=== PATIENT | male | born 1970 | race Hispanic/Latino ===

== ENCOUNTER 2017-11-29 17:36 | Inpatient (IN) | payer MEDICAID ==
--- NOTE | 2017-11-29 18:46 | C.PDOC ---
History Of Present Illness 47 year old male presents to the ED requesting alcohol detox. Patient also reports nausea and states his last drink was at 1200 today. Patient has no other complaints at this time. Time Seen by Provider: 11/29/17 18:32 Chief Complaint (Nursing): Substance Abuse History Per: Patient History/Exam Limitations: no limitations Onset/Duration Of Symptoms: Hrs Current Symptoms Are (Timing): Still Present Suicide/Self Injury Attempted (Context): None Modifying Factor(s): Alcohol Associated Symptoms: denies: Suicidal Thoughts, Suicidal Plan Involuntary Hold By: None Recent travel outside of the [place]: No Additional History Per: Patient Past Medical History Reviewed: Historical Data, Nursing Documentation, Vital Signs Vital Signs: Last Vital Signs Temp 97.7 F 12/02/17 09:02 Pulse 100 H 12/02/17 09:02 Resp 20 12/02/17 09:02 BP 105/66 12/02/17 09:02 Pulse Ox 98 12/02/17 09:02 - Medical History PMH: Anxiety, Bipolar Disorder, Depression Surgical History: No Surg Hx Family History: States: Unknown Family Hx - Social History Hx Alcohol Use: Yes Hx Substance Use: No - Immunization History Hx Tetanus Toxoid Vaccination: Yes (2016) Hx Influenza Vaccination: Yes (2016) Hx Pneumococcal Vaccination: No Review Of Systems Gastrointestinal: Positive for: Nausea Psych: Positive for: Other (alcohol detox ) Physical Exam - Physical Exam Appears: Non-toxic, No Acute Distress Skin: Normal Color, Warm, Dry Head: Atraumatic, Normacephalic Eye(s): bilateral: Normal Inspection Oral Mucosa: Moist Neck: Supple Chest: Symmetrical, No Deformity, No Tenderness Cardiovascular: Rhythm Regular, No Murmur Respiratory: Normal Breath Sounds, No Rales, No Rhonchi, No Wheezing Extremity: Normal ROM, Capillary Refill (less than 2 seconds ) Neurological/Psych: Oriented x3, Normal Speech, Normal Cognition ED Course And Treatment - Laboratory Results Result Diagrams: 11/29/17 19:51 11/29/17 19:51 O2 Sat by Pulse Oximetry: 92 - Physician Consult Information Time Consulting Physician Contacted: 00:54 Physician Contacted: Laurence Oakley Outcome Of Conversation: patient admitted inpatient for detox Medical Decision Making Medical Decision Making: Progress: Bloodwork, Urinalysis, CXR, EKG ordered and reviewed. ekg sinus tach. 103 00:50 Patient is AAOx3, calm and cooperative at this time. Medically cleared for psychiatric admission Disposition - Disposition Disposition: HOSPITALIZED Disposition Time: 12:00 Condition: STABLE - Clinical Impression Clinical Impression: Alcohol abuse - Scribe Statement The provider has reviewed the documentation as recorded by the Scribe (Karen Quintana) Provider Attestation: All medical record entries made by the Scribe were at my direction and personally dictated by me. I have reviewed the chart and agree that the record accurately reflects my personal performance of the history, physical exam, medical decision making, and the department course for this patient. I have also personally directed, reviewed, and agree with the discharge instructions and disposition. Decision To Admit - Pt Status Changed To: Hospital Disposition Of: Inpatient - Admit Certification Admit to Inpatient:: After my assessment, the patient will require hospitalization for at least two midnights. This is because of the severity of symptoms shown, intensity of services needed, and/or the medical risk in this patient being treated as an outpatient. - InPatient: Physician Admission Certification: I certify that this patient requires 2 or more midnights of care for the following reason:: need detox - . Bed Request Type: Detox Admitting Physician: Laurence Oakley Patient Diagnosis: Alcohol abuse
[2017-11-29 19:54] LABS: BASO % 0.8 % (0.0-2.0); EOS # 0.1 K/uL (0.0-0.7); EOS % 2.4 % (0.0-4.0); HEMOGLOBIN 16.8 g/dL (12.0-18.0); LYMPH # 1.5 K/uL (1.0-4.3); MEAN CELL VOLUME 95.5 fL (80.0-94.0); MEAN CORPUSCULAR HEMOGLOBIN 33.8 pg (27.0-31.0); MEAN CORPUSCULAR HGB CONC 35.4 g/dL (33.0-37.0); MEAN PLATELET VOLUME 6.8 fL (7.2-11.7); MONO # 0.5 K/uL (0.0-0.8); NEUT # 1.9 K/uL (1.8-7.0); NEUT % 46.8 % (50.0-75.0); NRBC % 0.1 % (0.0-2.0); RBC 4.95 Mil/uL (4.40-5.90); RED CELL DISTRIBUTION WIDTH 14.2 % (11.5-14.5)
[2017-11-29 19:58] LABS: URINE BILIRUBIN NEGATIVE (NEGATIVE); URINE BLOOD NEGATIVE (NEGATIVE); URINE CLARITY Clear (Clear); URINE COLOR Yellow (YELLOW); URINE GLUCOSE (UA) NORMAL (Normal); URINE LEUKOCYTE ESTERASE NEG Leu/uL (Negative); URINE PROTEIN 2+ mg/dL (NEGATIVE)
[2017-11-29 20:09] LABS: GFR AFRICAN-AMERICAN > 60; GFR NON-AFRICAN AMERICAN > 60
[2017-11-29 20:12] LABS: BARBITURATES, UR NEGATIVE (NEGATIVE); OPIATES, UR NEGATIVE (NEGATIVE); PHENCYCLIDINE, UR NEGATIVE (NEGATIVE)
[2017-11-29 20:16] LABS: BENZODIAZEPINES, UR POSITIVE (NEGATIVE)
[2017-11-29 22:13] LABS: ALB/GLOB RATIO 1.1 (1.0-2.1); ALT/SGPT 40 U/L (21-72); AST/SGOT 41 U/L (17-59); BLOOD UREA NITROGEN 14 mg/dL (9-20); CALCIUM 8.1 mg/dl (8.6-10.4); LIPASE 67 U/L (23-300)
--- NOTE | 2017-11-30 03:41 | PCM.BM ---
<Kelsey Joseph - Last Filed: 11/30/17 03:40> Treatment Plan Problems - Problems identified on initial assessmt ETOH Abuse Date Initiated: 11/30/17 Time Initiated: 01:45 Assessment reference: NA Status: Active Treatment assets and liabiliti Patient Assests: cooperative, negotiates basic needs Patient Liabilities: substance abuse - Milieu Protocol Maintain good personal hygiene: daily Encourage regular showers, daily Remind patient to perform daily oral care, every shift Assist patient to perform ADL's Conduct patient checks and document Observation sheet: Q15 minutes Maintain personal safety: every shift Educate patient to report safety concerns to staff, every shift Monitor environment for contraband/sharps Medication safety: Monitor for expected outcome, potential side effects: every shift, Assess barriers to learning: every shift, Assess readiness for medication education: every shift <Minh Damon - Last Filed: 12/05/17 01:07> - Diagnosis (1) Alcohol use disorder, severe, dependence Status: Acute Interventions: 12/05/17 01:05 * Assess 7x/week regarding severity of withdrawal * Educate regarding risks, benefits, side effects and alternatives of medications * Use Motivational Interviewing for abstinence * Use CBT for relapse prevention * Medication management for withdrawal symptoms * Encourage medication assisted treatment (2) Major depressive disorder, recurrent severe without psychotic features Status: Acute Interventions: 12/05/17 01:06 * Assess/adjust medications daily and /or as needed * See patient on an individual basis 7x/week to assess symptoms of depression * Monitor for side effects & effectiveness of medications
--- NOTE | 2017-11-30 07:44 | RAD ---
Chest x-ray two views History: Detox. Comparison: None available. Findings: Biapical pleural thickening with upper lobe granulomatous changes. Mild venous congestion. Small nodular density seen within the mid to lower lung zones bilaterally may represent nipple shadow. Correlation with nipple markers may be helpful. Additional small nodular density at the right lung base may represent vessel on end. Degenerative changes in the spine and shoulders. Impression: Biapical pleural thickening with upper lobe granulomatous changes. Mild venous congestion. Small nodular density seen within the mid to lower lung zones bilaterally may represent nipple shadow. Correlation with nipple markers may be helpful. Additional small nodular density at the right lung base may represent vessel on end.
[2017-11-30] MEDS: Multiple Vitamins Tab PO SCH (09:28)
--- NOTE | 2017-11-30 22:38 | PCM.PSYCH ---
Initial Psychiatric Evaluation - Initial Psychiatric Evaluation Type of Admission: Voluntary Legal Status: Capacity Chief Complaint (in patient's own words): Continue treatment for primary substance use. History of Present Illness and Precipitating Events: Patient is a 47 years old, , unemployed, male with history of depression for last few years, on Zoloft 100 mg daily and trazodone 150 mg at bedtime. Patient has history of one psychiatric admission last month at [facility].. Also reported lost some weight. Patient was admitted for were trying from alcohol and depression. Patient started drinking alcohol at 12 years of age, increased gradually up to 2 pints of vodka daily. Last drink was yesterday. His longest period of abstinence was 4 months from December 2016 to April 2017. History of 3-4 detox and 5 rehabilitation. His urine drug screen was positive for benzos. Patient reported he was using Librium also which was prescribed by his primary care physician. Patient has history of 6 mL in the past due to alcohol withdrawal. Last seizure was in June 2017. Not on any treatment. Patient has history of 2 DUIs. First DUI he was about 30 years ago and the second DUI in 2014. History of His involvement in the past. History of cocaine and cannabis used in the past. Last used 10 years ago. Patient smokes half pack of cigarettes daily and is requesting "nicotine patch. Patient was born in [place] and has GED. He worked for [employer] in the past but was fired as patient couldn't hold his job due to drinking alcohol. Patient is , lives at and 2 children 17 years old and 19 years old. Patient is supported by . His height is 5 feet 9 inches and weight is 155 pounds. Current Medications: Active Medications Generic Name Dose Route Start Last Admin Trade Name Freq PRN Reason Stop Dose Admin Chlordiazepoxide 50 mg 11/30/17 06:00 11/30/17 17:30 Librium PO 12/06/17 05:59 50 mg Q6 ASHLEY Administration Taper Chlordiazepoxide 25 mg 11/30/17 10:33 11/30/17 21:50 Librium PO 25 mg Q8 PRN Administration Other Clonidine HCl 0.1 mg 11/30/17 00:55 Catapres PO Q4H PRN Symptoms of alcohol withdrawl Folic Acid 1 mg 11/30/17 10:00 03/28/18 09:28 Folic Acid PO Not Given DAILY [facility] Hydroxyzine HCl 25 mg 11/30/17 00:55 Atarax PO Q6 PRN Anxiety Multivitamins 1 tab 11/30/17 10:00 11/30/17 09:28 Hexavitamin PO Not Given DAILY ASHLEY Ondansetron HCl 4 mg 11/30/17 02:02 11/30/17 12:18 Zofran Tab PO 4 mg Q6H PRN Administration Nausea/Vomiting Thiamine HCl 100 mg 11/30/17 10:00 11/30/17 09:28 Vitamin B1 Tab PO Not Given DAILY ASHLEY Trazodone HCl 50 mg 11/30/17 00:55 11/30/17 21:50 Desyrel PO 50 mg HS PRN Administration Insomnia Past Psychiatric History - Past Psychiatric History Previous Treatment History: Intensive Outpatient History of Abuse: None reported History of ETOH/Drug Use: See HPI History of Family Illness: None reported Pertinent Medical Hx (Current Medical&Sleep Prob, Allergies): Allergies Allergy/AdvReac Type Severity Reaction Status Date / Time No Known Allergies Allergy Verified 11/29/17 17:46 Unobtainable 11/29/17 Seizure disorder, no treatment Review of Systems - Psychiatric Psychiatric: Anxiety, Other Mental Status Examination - Personal Presentation Personal Presentation: Looks stated age - Affect Affect: Other (Appropriate) - Motor Activity Motor Activity: Calm - Reliability in Providing Information Reliability in Providing Information: Fair - Speech Speech: Relevant - Mood Mood: Anxious - Formal Thought Process Formal Thought Process: No Impairment Additional comments: None - Hallucinations/Delusions Hallucinations: Other (None reported) Delusions: Other - Obsessions/Compulsions Obsessions: None Compulsions: None - Cognitive Functions Orientation: Person, Place, Situation, Time Sensorium: Alert Attention/Concentration: Attentive Abstract Thinking: [place] Estimate of Intelligence: Average Judgement: Intact, as evidence by: Insight regarding need for hospitalization Memory: Recent intact, as evidence by: Ability to recall events of the day, Remote intact, as evidenced by: Ability to recall historical events - Risk Risk: Withdrawal, Diminished functioning - Strength & Assets Inventory Strength & Assets Inventory: Family support, Cooperative - Limitations Limitations: Other DSM 5 DX - DSM 5 DSM 5 Diagnosis: Alcohol use disorder severe Major depressive disorder recurrent severe without psychotic features. - Recommended/Plan of Treatment Treatment Recommendations and Plan of Treatment: Patient education Supportive therapy CBT for relapse prevention [place] for abstinence We will start Librium detox protocol for alcohol withdrawal symptoms Other when necessary medications Projected ELOS: 45 days - Smoking Cessation Smoking Cessation Initiated: Yes
[2017-12-01] MEDS: Multiple Vitamins Tab PO SCH (09:35)
--- NOTE | 2017-12-01 15:29 | PCM.PYCHPN ---
Psychiatric Progress Note - Psychiatric Progress Note Patient seen today, length of contact: 15 minutes Patient Chief Complaint: I'm not feeling much better. Problems Identified/Issues Discussed: Patient seen, chart reviewed, case discussed with the staff Issues related to illness and treatment were discussed with the patient. Reported compliant with treatment with no adverse affects. Reported not feeling much better, still has withdrawal symptoms including shaking. Got extra dose of Librium. Mood reported as good. Affect appropriate. Denied any delusions, auditory or visual hallucinations, suicidal ideations or homicidal ideation at the time of evaluation. At the time of evaluation, patient was awake, alert and oriented 3. Memory was also intact. Aftercare discussed with the patient. Patient wants to go to [facility]. Medical Problems: Seizure disorder Diagnostic Results: Reviewed DSM 5 Symptoms Update: Improving with treatment Medication Change: No Medical Record Reviewed: Yes Mental Status Examination - Cognitive Function Orientation: Person, Place, Situation, Time Memory: Intact Attention: WNL Concentration: WNL Association: WNL Fund of Knowledge: [facility] Decription of patient's judgement and insights: Fair - Mood Mood: Anxious - Affect Affect: Other (Appropriate) - Formal Thought Process Formal Thought Process: No Impairment Psychotic Thoughts and Behaviors: None - Suicidal Ideation Suicidal Ideation: No - Homicidal Ideation Homicidal Ideation: No Goal/Treatment Plan - Goal/Treatment Plan Need for Continued Stay: Remain at risks for inpatient hospitalization, Discharge may exacerbated symptoms, Severe functional impairment Progress Toward Problem(s) and Goals/Treatment Plan: Patient education Supportive therapy CBT for relapse prevention [place] for abstinence Patient wants to go to [facility] for follow-up care after discharge from the hospital. Estimated Date of D/C: 12/03/17 - Smoking Cessation Smoking Cessation Initiated: Yes
[2017-12-02] MEDS: Multiple Vitamins Tab PO SCH (10:57)
--- NOTE | 2017-12-02 17:58 | CARD ---
APPROVED REPORT EKG Measurement Heart [id number] <Conclusion> Sinus tachycardia Otherwise normal ECG
--- NOTE | 2017-12-03 00:44 | PCM.PYCHPN ---
Psychiatric Progress Note - Psychiatric Progress Note Patient seen today, length of contact: 15 minutes Patient Chief Complaint: I'm feeling better. Problems Identified/Issues Discussed: Patient seen, chart reviewed, case discussed with the staff Issues related to illness and treatment were discussed with the patient. Reported compliant with treatment with no adverse affects. Reported feeling better, still has withdrawal symptoms including shaking but less than before. Mood reported as good. Affect appropriate. Denied any delusions, auditory or visual hallucinations, suicidal ideations or homicidal ideation at the time of evaluation. At the time of evaluation, patient was awake, alert and oriented 3. Memory was also intact. Aftercare discussed with the patient. Patient wants to go to [facility]. Medical Problems: Seizure disorder Diagnostic Results: Reviewed DSM 5 Symptoms Update: Improving with treatment Medication Change: No Medical Record Reviewed: Yes Mental Status Examination - Cognitive Function Orientation: Person, Place, Situation, Time Memory: Intact Attention: WNL Concentration: WNL Association: WNL Fund of Knowledge: WN Decription of patient's judgement and insights: Fair - Mood Mood: Anxious (Less than before) - Affect Affect: Other (Appropriate) - Speech Speech: Appropriate - Formal Thought Process Formal Thought Process: No Impairment Psychotic Thoughts and Behaviors: None - Suicidal Ideation Suicidal Ideation: No - Homicidal Ideation Homicidal Ideation: No Goal/Treatment Plan - Goal/Treatment Plan Need for Continued Stay: Remain at risks for inpatient hospitalization, Discharge may exacerbated symptoms, Severe functional impairment Progress Toward Problem(s) and Goals/Treatment Plan: Patient education Supportive therapy CBT for relapse prevention [place] for abstinence Patient wants to go to [facility] for follow-up care after discharge from the hospital. Estimated Date of D/C: 12/03/17 - Smoking Cessation Smoking Cessation Initiated: Yes
[2017-12-03] MEDS: Multiple Vitamins Tab PO SCH (09:34)
--- NOTE | 2017-12-03 11:27 | PCM.PYCHPN ---
Psychiatric Progress Note - Psychiatric Progress Note Patient seen today, length of contact: 15 minutes Patient Chief Complaint: I'm feeling better. Can I get my BuSpar. Problems Identified/Issues Discussed: Patient seen, chart reviewed, case discussed with the staff Issues related to illness and treatment were discussed with the patient. Reported compliant with treatment with no adverse affects. Reported feeling better, still has some minimal withdrawal symptoms including shaking but much less than before. Patient is requesting for his BuSpar. Patient was taking 15 mg 3 times a day, we 'll start. Mood reported as good. Affect appropriate. Denied any delusions, auditory or visual hallucinations, suicidal ideations or homicidal ideation at the time of evaluation. At the time of evaluation, patient was awake, alert and oriented 3. Memory was also intact. Aftercare discussed with the patient. Patient wants to go to [facility]. Medical Problems: Seizure disorder Diagnostic Results: Reviewed DSM 5 Symptoms Update: Improving with treatment Medication Change: Yes (Started his BuSpar 15 mg 3 times a day) Medical Record Reviewed: Yes Mental Status Examination - Cognitive Function Orientation: Person, Place, Situation, Time Memory: Intact Attention: WNL Concentration: WNL Association: [facility] Fund of Knowledge: [facility] Decription of patient's judgement and insights: Fair - Mood Mood: Anxious (Less than before) - Affect Affect: Other (Appropriate) - Speech Speech: Appropriate - Formal Thought Process Formal Thought Process: No Impairment Psychotic Thoughts and Behaviors: None - Suicidal Ideation Suicidal Ideation: No - Homicidal Ideation Homicidal Ideation: No Goal/Treatment Plan - Goal/Treatment Plan Need for Continued Stay: Remain at risks for inpatient hospitalization, Discharge may exacerbated symptoms, Severe functional impairment Progress Toward Problem(s) and Goals/Treatment Plan: Patient education Supportive therapy CBT for relapse prevention [place] for abstinence. We will start BuSpar 15 mg 3 times a day. Continue rest of the treatment as before. Patient wants to go to [facility] for follow-up care after discharge from the hospital. Estimated Date of D/C: 12/05/17 - Smoking Cessation Smoking Cessation Initiated: Yes
--- NOTE | 2017-12-04 07:28 | PCM.PYCHPN ---
Psychiatric Progress Note - Psychiatric Progress Note Patient seen today, length of contact: 15 minutes Patient Chief Complaint: I am feeling little better Problems Identified/Issues Discussed: Patient seen and evaluated, chart reviewed and discussed with the nurse. Patient reports improvement in her mood and reports improvement in the withdrawal symptoms. She denies any SI/HI/AVH. She is taking medication and denies any side effects. She needs more time for stabilization. Supportive therapy and psychoeducation were given. Medication Change: No Medical Record Reviewed: Yes Mental Status Examination - Cognitive Function Orientation: Person, Place, Situation, Time Memory: Intact Attention: WNL Concentration: WNL Association: WN Fund of Knowledge: WN - Mood Mood: Anxious (Less than before) - Affect Affect: Other (Appropriate) - Speech Speech: Appropriate - Formal Thought Process Formal Thought Process: No Impairment - Suicidal Ideation Suicidal Ideation: No - Homicidal Ideation Homicidal Ideation: No Goal/Treatment Plan - Goal/Treatment Plan Need for Continued Stay: Remain at risks for inpatient hospitalization, Discharge may exacerbated symptoms, Severe functional impairment Progress Toward Problem(s) and Goals/Treatment Plan: Alcohol use disorder severe Major depressive disorder recurrent severe without psychotic features. Patient education Supportive therapy CBT for relapse prevention [place] for abstinence We will start Librium detox protocol for alcohol withdrawal symptoms Other when necessary medications Estimated Date of D/C: 12/05/17
[2017-12-04] MEDS: Multiple Vitamins Tab PO SCH (09:18)
[2017-12-05] MEDS: Multiple Vitamins Tab PO SCH (09:08)
--- NOTE | 2017-12-05 10:35 | PCM.PYCHPN ---
Psychiatric Progress Note - Psychiatric Progress Note Patient seen today, length of contact: 15 minutes Patient Chief Complaint: "I am doing better today." Problems Identified/Issues Discussed: The pt is seen, chart reviewed, case discussed with staff. Pt is sleeping well, he believes Trazadone is helpful. Support given, CBT and [facility] used briefly No new symptoms reported, improving slowly and needs more time No SEs from medications, risks discussed. After care discussed Medication Change: No Medical Record Reviewed: Yes Mental Status Examination - Cognitive Function Orientation: Person, Place, Situation, Time Memory: Intact Attention: WNL Concentration: WNL Association: WN Fund of Knowledge: WN - Mood Mood: Anxious (Less than before) - Affect Affect: Other (Appropriate) - Speech Speech: Appropriate - Formal Thought Process Formal Thought Process: No Impairment - Suicidal Ideation Suicidal Ideation: No - Homicidal Ideation Homicidal Ideation: No Goal/Treatment Plan - Goal/Treatment Plan Need for Continued Stay: Remain at risks for inpatient hospitalization, Discharge may exacerbated symptoms, Severe functional impairment Progress Toward Problem(s) and Goals/Treatment Plan: Continue medications Support and psychoeducation daily Attend groups and activities daily After care planning by MICHELLE. Plans to attend [facility]. Estimated Date of D/C: 12/05/17
[2017-12-06 06:25] VITALS: TEMP 98.8
--- NOTE | 2017-12-06 08:41 | PCM.PYCHDC ---
Mental Status Examination - Mental Status Examination Orientation: Person Memory: Intact Mood: Neutral Affect: Broad Speech: Appropriate Attention: WNL Concentration: WNL Association: WNL Fund of Knowledge: WNL Formal Thought Process: No Impairment Suicidal Ideation: No Current Homicidal Ideation?: No Discharge Summary - Discharge Note Reason for Hospitalization: Alcohol Detox Consultations:: List each consultation separately and include: 1. Reason for request. 2. Findings. 3. Follow-up Summary of Hospital Course include:: 1. Description of specific treatment plan utilized for patients during their course of treatmen. 2. Summarize the time- course for resolution of acute symptoms and/or regressed behaviors. 3. Describe issues identified and worked on during hospitalization. 4. Describe medication utilized. 5. Describe medical problems identified and treated. 6. Reassessment of suicide risk Summary of Hospital Course: The pt was admitted and started on treatment with psychotherapy, support, psychoeducation and medications. [place] and CBT used. The pt attended groups and activities, as well as milieu therapy. All the risks and benefits of medications are discussed and the patient understood and agreed. The pt improved with the treatments provided. After care discussed with the patient. After a lengthy process he is accepted by [facility] but may have to wait a day at home. - Final Diagnosis (DSM 5) Condition upon Discharge: STABLE DSM 5: Alcohol use d/o - severe Alcohol withdrawal Disposition: HOME/ ROUTINE Follow-up Treatment Plan: Continue below medications after discharge. Follow after care plan as discussed. Use relapse prevention skills Return to ER or call 911 if suicidal, homicidal or symptoms relapse. Stay away from stress, alcohol and drugs. See primary doctor regularly and get labs. Prescriptions/Medication Reconciliation: busPIRone [Buspar] 15 mg PO TID #90 tab Gabapentin [Neurontin] 400 mg PO BID #60 cap Sertraline [Zoloft] 200 mg PO DAILY #60 tab traZODone [Desyrel] 100 mg PO HS PRN #30 tab PRN Reason: Insomnia
[2017-12-06] MEDS: Multiple Vitamins Tab PO SCH (09:26)
[2017-12-06 09:54] VITALS: BP 100/61; PULSE 71; RESP 20; O2SAT 100
== END 2017-12-06 10:40 | disposition home or self-care (01) | DRG 750 ==
LOC: C.ER 17:36 → C.7D 11-30 00:54
PROVIDERS: ADMIT Psychiatry & Neurology Psychiatry; ATTEND Psychiatry & Neurology Psychiatry
PROC: HZ2ZZZZ Detoxification Services for Substance Abuse Treatment (ICD-10-PCS; principal; 2017-11-30)
PROC: HZ52ZZZ Individual Psychotherapy for Substance Abuse Treatment, Cognitive-Behavioral (ICD-10-PCS; 2017-11-30)
PROC: HZ59ZZZ Individual Psychotherapy for Substance Abuse Treatment, Supportive (ICD-10-PCS; 2017-11-30)
PROC: HZ56ZZZ Individual Psychotherapy for Substance Abuse Treatment, Psychoeducation (ICD-10-PCS; 2017-11-30)
PROC: HZ42ZZZ Group Counseling for Substance Abuse Treatment, Cognitive-Behavioral (ICD-10-PCS; 2017-11-30)
PROC: HZ46ZZZ Group Counseling for Substance Abuse Treatment, Psychoeducation (ICD-10-PCS; 2017-11-30)
DX: F10.230 Alcohol dependence with withdrawal, uncomplicated (principal); F33.2 Major depressive disorder, recurrent severe without psychotic features; Y90.8 Blood alcohol level of 240 mg/100 ml or more; G40.909 Epilepsy, unspecified, not intractable, without status epilepticus; G47.00 Insomnia, unspecified

== ENCOUNTER 2018-05-31 22:20 | Inpatient (IN) | payer MEDICAID ==
--- NOTE | 2018-05-31 22:43 | C.PDOC ---
History Of Present Illness 47 year old male presents to the ED requesting detoxification from alcohol. Patient reports he drank Vodka tonight. He denies any SI/HI, visual or auditory hallucinations, depression or any other symptoms. Time Seen by Provider: 05/31/18 22:30 Chief Complaint (Nursing): Substance Abuse History Per: Patient History/Exam Limitations: intoxication Onset/Duration Of Symptoms: Hrs Current Symptoms Are (Timing): Still Present Suicide/Self Injury Attempted (Context): None Modifying Factor(s): Alcohol Associated Symptoms: denies: Suicidal Thoughts, Suicidal Plan Past Medical History Reviewed: Historical Data, Nursing Documentation, Vital Signs Vital Signs: Last Vital Signs Temp 98.7 F 05/31/18 22:25 Pulse 92 H 05/31/18 22:25 Resp 20 05/31/18 22:25 BP 108/77 05/31/18 22:25 Pulse Ox 98 05/31/18 22:25 - Medical History PMH: Anxiety, Bipolar Disorder, Depression, Pancreatitis, Seizures Denies: Diabetes, Hepatitis, HIV, HTN, Sexually Transmitted Disease Surgical History: No Surg Hx - [facility] DETOXIFICATION SERVICES FOR SUBSTANCE ABUSE TREATMENT (11/30/17) [facility] CONSULTANT FOR SUBSTANCE ABUSE TREATMENT, PSYCHOEDUCATION (11/30/17) [facility] CONSULTANT FOR SUBSTANCE ABUSE, COGNITIVE BEHAVIORAL (11/30/17) INDIV PSYCHOTHERAPY FOR SUBSTANCE ABUSE TREATMENT, SUPPORT (11/30/17) INDIV PSYCHOTHERAPY FOR SUBSTANCE ABUSE, COGNITIV BEHAVIORAL (11/30/17) INDIV PSYCHOTHERAPY FOR SUBSTANCE ABUSE, PSYCHOEDUCATION (11/30/17) Family History: States: No Known Family Hx - Social History Hx Alcohol Use: Yes Hx Substance Use: No - Immunization History Hx Tetanus Toxoid Vaccination: Yes (2016) Hx Influenza Vaccination: No (2016) Hx Pneumococcal Vaccination: No Review Of Systems Except As Marked, All Systems Reviewed And Found Negative. Psych: Negative for: Depression, Suicidal ideation Physical Exam - Physical Exam Appears: Non-toxic, Other (alcohol on breath) Skin: Warm, Dry Head: Normacephalic Eye(s): bilateral: Normal Inspection Nose: Normal Neck: Normal ROM Chest: Symmetrical Cardiovascular: Rhythm Regular Respiratory: Normal Breath Sounds, No Rales, No Rhonchi, No Wheezing Gastrointestinal/Abdominal: Soft, No Tenderness Extremity: Normal ROM Neurological/Psych: Oriented x3 Gait: Steady ED Course And Treatment - Laboratory Results Result Diagrams: 05/31/18 22:53 05/31/18 22:53 O2 Sat by Pulse Oximetry: 98 (RA) Pulse Ox Interpretation: Normal Medical Decision Making Medical Decision Making: Orders: - Labwork - UA 0300 Patient is medically clear. observed in er 5 hours clincially sober ambualtory steady gait Disposition - Disposition Disposition: HOSPITALIZED Disposition Time: 03:00 Condition: STABLE Forms: [facility] (Yoruba) - Clinical Impression Clinical Impression: Alcohol use disorder, severe, dependence - Scribe Statement The provider has reviewed the documentation as recorded by the Scribe Smita Trujillo All medical record entries made by the Scribe were at my direction and personally dictated by me. I have reviewed the chart and agree that the record accurately reflects my personal performance of the history, physical exam, medical decision making, and the department course for this patient. I have also personally directed, reviewed, and agree with the discharge instructions and disposition. Decision To Admit - Pt Status Changed To: Hospital Disposition Of: Inpatient - Admit Certification Admit to Inpatient:: After my assessment, the patient will require hospitalization for at least two midnights. This is because of the severity of symptoms shown, intensity of services needed, and/or the medical risk in this patient being treated as an outpatient. - InPatient: Physician Admission Certification: I certify that this patient requires 2 or more midnights of care for the following reason:: needs detox - . Bed Request Type: Detox Admitting Physician: Rafael Britton Patient Diagnosis: Alcohol use disorder, severe, dependence
[2018-05-31 22:59] LABS: BASO % 0.9 % (0.0-2.0); EOS # 0.1 K/uL (0.0-0.7); EOS % 2.9 % (0.0-4.0); HEMOGLOBIN 15.1 g/dL (12.0-18.0); LYMPH # 2.1 K/uL (1.0-4.3); LYMPH % 48.4 % (20.0-40.0); MEAN CELL VOLUME 92.1 fL (80.0-94.0); MEAN CORPUSCULAR HEMOGLOBIN 32.7 pg (27.0-31.0); MEAN CORPUSCULAR HGB CONC 35.5 g/dL (33.0-37.0); MEAN PLATELET VOLUME 7.1 fL (7.2-11.7); MONO # 0.4 K/uL (0.0-0.8); MONO % 9.4 % (0.0-10.0); NEUT # 1.7 K/uL (1.8-7.0); NEUT % 38.4 % (50.0-75.0); RBC 4.62 Mil/uL (4.40-5.90); RED CELL DISTRIBUTION WIDTH 13.5 % (11.5-14.5); WHITE BLOOD COUNT 4.3 K/uL (4.8-10.8)
[2018-05-31 23:11] LABS: ALB/GLOB RATIO 1.7 (1.0-2.1); ALT/SGPT 15 U/L (21-72); AST/SGOT 20 U/L (17-59); BLOOD UREA NITROGEN 11 mg/dL (9-20); GFR NON-AFRICAN AMERICAN > 60
[2018-05-31 23:32] LABS: BARBITURATES, UR NEGATIVE (NEGATIVE); BENZODIAZEPINES, UR NEGATIVE (NEGATIVE); OPIATES, UR NEGATIVE (NEGATIVE); PHENCYCLIDINE, UR NEGATIVE (NEGATIVE)
[2018-05-31 23:34] LABS: URINE BILIRUBIN NEGATIVE (NEGATIVE); URINE BLOOD NEGATIVE (NEGATIVE); URINE CLARITY Clear (Clear); URINE COLOR Straw (YELLOW); URINE GLUCOSE (UA) NORMAL (Normal); URINE LEUKOCYTE ESTERASE NEG Leu/uL (Negative); URINE PROTEIN NEGATIVE (NEGATIVE); URINE UROBILINOGEN NORMAL mg/dL (0.2-1.0)
--- NOTE | 2018-06-01 06:01 | PCM.BM ---
<Kelsey Joseph - Last Filed: 06/01/18 06:00> Treatment Plan Problems - Problems identified on initial assessmt Alcohol Abuse Date Initiated: 06/01/18 Time Initiated: 03:45 Assessment reference: NA Status: Active Treatment assets and liabiliti Patient Assests: cooperative, negotiates basic needs Patient Liabilities: substance abuse (ETOH) - Milieu Protocol Maintain good personal hygiene: daily Encourage regular showers, daily Remind patient to perform daily oral care, every shift Assist patient to perform ADL's Conduct patient checks and document Observation sheet: Q15 minutes Maintain personal safety: every shift Educate patient to report safety concerns to staff, every shift Monitor environment for contraband/sharps Medication safety: Monitor for expected outcome, potential side effects: every shift, Assess barriers to learning: every shift, Assess readiness for medication education: every shift <Rafael Britton - Last Filed: 06/01/18 12:20> - Diagnosis (1) Alcohol use disorder, severe, dependence Status: Acute Interventions: 06/01/18 12:20 * Assess 7x/week regarding severity of withdrawal * Educate regarding risks, benefits, side effects and alternatives of medications * Use Motivational Interviewing for abstinence * Use CBT for relapse prevention * Medication management for withdrawal symptoms * Encourage medication assisted treatment * (2) Major depressive disorder, recurrent severe without psychotic features Status: Acute Interventions: 06/01/18 12:20 * Assess/adjust medications daily and /or as needed * See patient on an individual basis 7x/week to assess symptoms of depression * Monitor for side effects & effectiveness of medications * <Bhavya Anna - Last Filed: 06/01/18 14:25> Family Contact Family involvement: Family/SO is involved Family contact name: , Charisse Family contacted how many times per week?: 3 - Goals for Treatment Patient goals for treatment: Complete detox and resume partial hospitalization program. Discharge/Continuing Care - Education Needs Education Needs: Patient Medication, Patient Diagnosis/Disease Process, Patient Coping Skills, Patient Anger Management skills, Patient Placement options, Patient Community resources, Significant Other Medication, Significant Other Farideh gnosis/Disease Process, Significant Other Placement options, Significant Other Community resources - Discharge Discharge Criteria: No longer exhibiting s/s of withdrawal, Reduction of target symptoms Discharge to:: Home, With Family - Additional Comments 06/01/18 14:25 "I wanna go back to the [facility] partial hospitalization program in [place]." - Treatment Team Participation Discussed with Family/SO: No Was Patient/Family/SO present at Treatment Team Meeting: Yes
[2018-06-01] MEDS: Multiple Vitamins Tab PO SCH (09:24)
[2018-06-01] MEDS: Pantoprazole 20 mg EC Tab PO SCH (10:11)
--- NOTE | 2018-06-01 12:18 | PCM.PSYCH ---
Initial Psychiatric Evaluation - Initial Psychiatric Evaluation Type of Admission: Voluntary Legal Status: Capacity Chief Complaint (in patient's own words): "I want to get clean" History of Present Illness and Precipitating Events: Patient is a 47 year-old male, with two children at ages 18 and 20, who lives with his and children in [place], [place]. Patient is here for alcohol detox. He has been drinking on and off for 35 years. He reports drinking a couple of pints of vodka every day in the last 15 years. He also reports using cocaine occasionally in the last 5-6 years. The last time he used cocaine was a couple of weeks ago. He smokes a ppd. He denies any other drug use. Patient reports not feeling well today. He complains about nausea, hot flashes, sweatiness, dizziness, and tremors over his whole body. He denies feeling depressed, hopeless or suicidal/homicidal. He tried detox 6 times in the past. His last detox was at [facility] 6 months ago. He tried rehabilitation 6 times as well. Patient reports being diagnosed with Bipolar Disorder about 10 years ago but he has not been taking any medication for weeks. He had seizures in the past. His last seizure was 3 weeks ago. He states that he fell on the floor during the seizure and hurt his head but did not go to a hospital. Patient plans to do an out patient program in [place] after detox. He states that he is not interested in AA. Psych hx: Bipolar Disorder - Unstable as he was ignoring meds Medical hx: GERD, Pancreatitis, Esophageal ulcer, seizures - also unstable due to non-compliance (but no recent seizures) Family Hx: denies. Current Medications: Active Medications Generic Name Dose Route Start Last Admin Trade Name Freq PRN Reason Stop Dose Admin Chlordiazepoxide 25 mg 06/01/18 08:59 Librium PO Q4H PRN Alcohol Withdrawal Chlordiazepoxide 25 mg 06/01/18 09:00 Librium PO 06/06/18 05:59 Q6 ASHLEY Taper Clonidine HCl 0.1 mg 06/01/18 08:59 Catapres PO Q4H PRN Symptoms of alcohol withdrawl Folic Acid 1 mg 06/01/18 10:00 06/01/18 09:24 Folic Acid PO 1 mg DAILY ASHLEY Administration Gabapentin 400 mg 06/01/18 10:00 06/01/18 10:11 Neurontin PO 400 mg TID ASHLEY Administration Multivitamins 1 tab 06/01/18 10:00 06/01/18 09:24 Hexavitamin PO 1 tab DAILY ASHLEY Administration Pantoprazole Sodium 20 mg 06/01/18 10:00 06/01/18 10:11 Protonix Ec Tab PO 20 mg DAILY ASHLEY Administration Pneumococcal Polyvalent Vaccine 0.5 ml 06/04/18 10:00 Pneumovax 23 Vaccine IM 06/04/18 10:01 .ONCE ONE Thiamine HCl 100 mg 06/01/18 10:00 06/01/18 09:24 Vitamin B1 Tab PO 100 mg DAILY ASHLEY Administration Trazodone HCl 50 mg 06/01/18 08:59 Desyrel PO HS PRN Insomnia Past Psychiatric History - Past Psychiatric History Previous Treatment History: Intensive Outpatient Pertinent Medical Hx (Current Medical&Sleep Prob, Allergies): Allergies Allergy/AdvReac Type Severity Reaction Status Date / Time No Known Allergies Allergy Verified 05/31/18 22:28 Gabapentin [Neurontin] 400 mg PO BID #60 cap 12/06/17 Sertraline [Zoloft] 200 mg PO DAILY #60 tab 12/06/17 busPIRone [Buspar] 15 mg PO TID #90 tab 12/06/17 traZODone [Desyrel] 100 mg PO HS PRN #30 tab 12/06/17 Review of Systems - Neurological Neurological: UNREMARKABLE - Psychiatric Psychiatric: Abnormal Sleep Pattern, Anxiety, Change in Appetite, Difficulty Concentrating, Irritability. absent: Hallucinations, Homicidal Ideation, Paranoia, Suicidal Ideation Mental Status Examination - Personal Presentation Personal Presentation: Looks stated age - Affect Affect: Constricted - Motor Activity Motor Activity: Calm - Reliability in Providing Information Reliability in Providing Information: Good - Speech Speech: Organized - Mood Mood: Anxious - Formal Thought Process Formal Thought Process: No Impairment - Cognitive Functions Orientation: Person, Place, Situation, Time Sensorium: Alert Attention/Concentration: Easily distracted Estimate of Intelligence: Average Judgement: Intact, as evidence by: Insight regarding need for hospitalization Memory: Recent intact, as evidence by: Ability to recall events of the day, Remote intact, as evidenced by: Abilit to recall sig. life events - Risk Risk: Seizure, Withdrawal, Diminished functioning - Strength & Assets Inventory Strength & Assets Inventory: Cooperative - Limitations Limitations: Other DSM 5 DX - DSM 5 DSM 5 Diagnosis: Alcohol withdrawal Alcohol use d/o - severe Major depressive d/o- recurrent r/o bipolar d/o - Recommended/Plan of Treatment Treatment Recommendations and Plan of Treatment: Taper with librium Gabapentin for augmentation if needed As needed medications All risks, benefits and alternatives of the meds discussed, and the patient agreed and understood. Attend groups and activities Supportive therapy and psychoeducation [place] for abstinence CBT for relapse prevention Encourage MAT Refer to rehab or IOP, and self-help groups Teach healthy lifestyle methods, i.e. diet, exercise, meditation Smoking cessation with [place] Nicotine patch if needed 34 min Projected ELOS: 4-5 days Prognosis: good w treatment
[2018-06-02] MEDS: Multiple Vitamins Tab PO SCH (09:21)
[2018-06-02] MEDS: Pantoprazole 20 mg EC Tab PO SCH (09:21)
[2018-06-03 06:08] VITALS: RESP 18
[2018-06-03] MEDS: Pantoprazole 20 mg EC Tab PO SCH (09:11)
[2018-06-03] MEDS: Multiple Vitamins Tab PO SCH (09:11)
[2018-06-04] MEDS: Multiple Vitamins Tab PO SCH (09:22)
[2018-06-04] MEDS: Pantoprazole 20 mg EC Tab PO SCH (09:22)
[2018-06-04] MEDS ORDERED: Pneumococcal 23-Valent Vaccine IM ONE (10:00)
[2018-06-04 11:12] VITALS: BP 112/75; PULSE 71; TEMP 98.5; O2SAT 99
--- NOTE | 2018-06-04 18:10 | PCM.PYCHDC ---
Mental Status Examination - Mental Status Examination Orientation: Person, Place, Situation, Time Memory: Intact Mood: Neutral Affect: Other (Appropriate) Speech: Appropriate Attention: WNL Concentration: WNL Association: WNL Fund of Knowledge: WNL Formal Thought Process: No Impairment Description of patient's judgement and insight: Fair Psychotic Thoughts and Behaviors: None Suicidal Ideation: No Current Homicidal Ideation?: No Discharge Summary - Discharge Note Reason for Hospitalization: Alcohol use disorder severe Major depressive disorder recurrent Laboratory Data: Reviewed Consultations:: List each consultation separately and include: 1. Reason for request. 2. Findings. 3. Follow-up Summary of Hospital Course include:: 1. Description of specific treatment plan utilized for patients during their course of treatmen. 2. Summarize the time- course for resolution of acute symptoms and/or regressed behaviors. 3. Describe issues identified and worked on during hospitalization. 4. Describe medication utilized. 5. Describe medical problems identified and treated. 6. Reassessment of suicide risk Summary of Hospital Course: Patient is a 47 year-old male, with two children at ages 18 and 20, who lives with his and children in [place], [place]. Patient is here for alcohol detox. He has been drinking on and off for 35 years. He reports drinking a couple of pints of vodka every day in the last 15 years. He also reports using cocaine occasionally in the last 5-6 years. The last time he used cocaine was a couple of weeks ago. He smokes a ppd. He denies any other drug use. Patient reports not feeling well today. He complains about nausea, hot flashes, sweatiness, dizziness, and tremors over his whole body. He denies feeling depressed, hopeless or suicidal/homicidal. He tried detox 6 times in the past. His last detox was at [facility] 6 months ago. He tried rehabilitation 6 times as well. Patient reports being diagnosed with Bipolar Disorder about 10 years ago but he has not been taking any medication for weeks. He had seizures in the past. His last seizure was 3 weeks ago. He states that he fell on the floor during the seizure and hurt his head bu t did not go to a hospital. Patient plans to do an out patient program in [place] after detox. He states that he is not interested in AA. Psych hx: Bipolar Disorder - Unstable as he was ignoring meds Medical hx: GERD, Pancreatitis, Esophageal ulcer, seizures - also unstable due to non-compliance (but no recent seizures) During his stay in the hospital, patient was treated with Librium taper for alcohol withdrawal symptoms. Patient was also started on other medications plus other when necessary medications. Patient was attending groups and other activities on the unit. With the above treatment patient started feeling better. Today patient was stable, had no withdrawal symptoms and was ready to discharge. At the time of evaluation and discharge, patient was awake alert oriented 3, had no delusions, no auditory or visual hallucinations, no suicidal ideations or homicidal ideations. Patient was discharged in stable condition. Patient will go to [facility], for follow-up care after discharge from the hospital. - Final Diagnosis (DSM 5) Condition upon Discharge: STABLE Disposition: HOME/ ROUTINE Follow-up Treatment Plan: Patient will go to [facility] for follow-up care. Prescriptions/Medication Reconciliation: Gabapentin [Neurontin] 400 mg PO TID #90 cap Pantoprazole [Protonix EC Tab] 20 mg PO DAILY #30 ect traZODone [Desyrel] 50 mg PO HS PRN #30 tab PRN Reason: Insomnia - Smoking Cessation Smoking Cessation Medication prescribed: No - Antipsychotic Medications Pt discharged on 2 or more routine antipsychotic medications: No
--- NOTE | 2018-06-05 08:38 | PCM.PYCHPN ---
Psychiatric Progress Note - Psychiatric Progress Note Patient seen today, length of contact: 16 min Patient Chief Complaint: "I am OK today" Problems Identified/Issues Discussed: The pt is seen, chart reviewed, case discussed with staff. The pt is compliant with medications and reports no side-effects. Symptoms are improving but needs more time to stabilize. Pt attends groups and activities. Support given, psycho-education provided. After care discussed. Medication Change: Yes (detox changes daily) Medical Record Reviewed: Yes Mental Status Examination - Cognitive Function Orientation: Person, Place, Situation, Time Memory: Intact Attention: WNL Concentration: WNL Association: WNL Fund of Knowledge: WNL - Mood Mood: Neutral - Affect Affect: Constricted - Speech Speech: Appropriate - Formal Thought Process Formal Thought Process: No Impairment - Suicidal Ideation Suicidal Ideation: No - Homicidal Ideation Homicidal Ideation: No Goal/Treatment Plan - Goal/Treatment Plan Need for Continued Stay: Discharge may exacerbated symptoms, Severe functional impairment Progress Toward Problem(s) and Goals/Treatment Plan: Taper with librium Gabapentin for augmentation if needed As needed medications All risks, benefits and alternatives of the meds discussed, and the patient agreed and understood. Attend groups and activities Supportive therapy and psychoeducation [place] for abstinence CBT for relapse prevention Encourage MAT Refer to rehab or IOP, and self-help groups Teach healthy lifestyle methods, i.e. diet, exercise, meditation Smoking cessation with [place] Nicotine patch if needed
== END 2018-06-04 14:07 | disposition home or self-care (01) | DRG 750 ==
LOC: C.ER 22:20 → C.7D 06-01 03:28
PROVIDERS: ADMIT Psychiatry & Neurology Psychiatry; ATTEND Psychiatry & Neurology Psychiatry
PROC: HZ2ZZZZ Detoxification Services for Substance Abuse Treatment (ICD-10-PCS; principal; 2018-06-01)
PROC: HZ52ZZZ Individual Psychotherapy for Substance Abuse Treatment, Cognitive-Behavioral (ICD-10-PCS; 2018-06-01)
PROC: HZ59ZZZ Individual Psychotherapy for Substance Abuse Treatment, Supportive (ICD-10-PCS; 2018-06-01)
PROC: HZ56ZZZ Individual Psychotherapy for Substance Abuse Treatment, Psychoeducation (ICD-10-PCS; 2018-06-01)
DX: F10.239 Alcohol dependence with withdrawal, unspecified (principal); F33.2 Major depressive disorder, recurrent severe without psychotic features; F14.90 Cocaine use, unspecified, uncomplicated; F17.210 Nicotine dependence, cigarettes, uncomplicated; K21.9 Gastro-esophageal reflux disease without esophagitis; Z87.19 Personal history of other diseases of the digestive system; Z91.19 Patient's noncompliance with other medical treatment and regimen